=== PATIENT | male | born 1985 | race American Indian/Alaskan Native ===

== ENCOUNTER 2021-08-09 20:16 | Emergency (ER) | payer SELFPAY ==
[2021-08-09 20:55] VITALS: BP 149/90
[2021-08-09] MEDS ORDERED: ACETAMINOPHEN 325 MG TAB PO ONE (22:32)
[2021-08-09] MEDS ORDERED: IBUPROFEN 400 MG TAB PO ONE (22:32)
--- NOTE | 2021-08-09 22:33 | Emergency Department Report ---
Upper Extremity - HPI Chief Complaint: Chest Pain Stated Complaint: CHEST AND LT SHOULDER PAIN Time Seen by Provider: 08/09/21 21:54 Upper Extremity: Left Shoulder Occurred When: Today Mechanism: Unsure Symptoms: Yes Pain with Movement, No Deformity, No Limited Range of Movement, No Numbness, No Weakness, No Swelling, No Bruising/Ecchymosis, No Laceration or Abrasion Other History: The patient is a [id number] male who is 36 years old, with a body mass index of 56.4, who is not COVID-19 vaccinated, who presents to the ER today with a complaint of nontraumatic left-sided shoulder blade pain and scapular pain, moves to the left anterior chest wall. He denies travel, surgery, immobilization, DVT/PE risk factors. Denies vomiting, diaphoresis, exertional shortness of breath, leg pain, leg swelling, personal/family history of DVT/PE. He also reports that he is not consuming tobacco smoke products. He denies additional injuries and complaints. He has not taken pain medication at home for this. ED Review of Systems ROS: Stated complaint: CHEST AND LT SHOULDER PAIN Other details as noted in HPI Constitutional: denies: fever ENT: denies: congestion Respiratory: denies: cough, shortness of breath Cardiovascular: as per HPI Gastrointestinal: denies: abdominal pain Musculoskeletal: arthralgia, myalgia Neurological: denies: weakness ED Past Medical Hx - Past Medical History Previous Medical History?: No - Surgical History Past Surgical History?: No - Social History Smoking Status: Light Tobacco Smoker Substance Use Type: None - Medications Home Medications: Home Medications Medication Instructions Recorded Confirmed Last Taken Type Amoxicillin/K Clav Tab [Augmentin 1 tab PO Q12HR #20 tab 04/15/15 Unknown Rx 875 mg] Fluticasone [Flonase] 1 spray NS QDAY #1 bottle 04/15/15 Unknown Rx Acetaminophen [Non-Aspirin Extra 500 mg PO Q6HR PRN #30 tablet 08/09/21 Unknown Rx Strength] Ibuprofen [Motrin] 600 mg PO Q8H PRN #30 tablet 08/09/21 Unknown Rx Upper Extremity Exam - Exam General: Vital signs noted. No distress. Alert and acting appropriately. There is left anterior reproducible chest wall tenderness. There is minimal pain with active and passive range of motion of the left shoulder, internal rotation and external rotation. There is no redness, pus or streaking of the left shoulder. There is also reproducible left-sided inferior scapular tenderness. There is no redness, pus or streaking Head and Torso: No HEENT Abnormality, No Neck Tenderness, No Chest/Lungs Abnormality, No Abdominal Tenderness, No Back Tenderness Shoulder Exam: Yes Normal Range of Motion in Shoulder, No Shoulder Tenderness, No Clavicle Tenderness, No Shoulder Deformity, No AC Joint Tenderness Arm Exam: No Arm/Humerus Tenderness, No Arm Deformity Elbow: Yes Normal Range of Motion in Elbow, No Elbow Tenderness, No Elbow Deformity Forearm: No Forearm Tenderness, No Forearm Deformity, No Pain with Pronation, No Pain with Supination Wrist: Yes Normal ROM in Wrist, No Wrist Tenderness, No Wrist Deformity, No Snuffbox Tenderness, No Pain with Axial Thumb Compression Hand: Yes Normal ROM in Digit(s), No Hand Tenderness, No Hand Deformity, No Digit Tenderness, No Digit(s) Deformity, No Tendon Dysfunction CMS Exam: No Broken Skin, No Normal Distal Pulses, No Normal Capillary Refill, No Normal Distal Sensation ED Course Vital Signs 08/09/21 20:52 Temperature 98.7 F Pulse Rate 89 Respiratory 16 Rate Blood Pressure 149/90 [Right] O2 Sat by Pulse 99 Oximetry ED Medical Decision Making - Lab Data Vital Signs 08/09/21 08/09/21 08/09/21 20:52 23:08 23:09 Temperature 98.7 F Pulse Rate 89 Respiratory 16 16 16 Rate Blood Pressure 149/90 [Right] O2 Sat by Pulse 99 Oximetry - EKG Data -: EKG Interpreted by Sc EKG shows normal: sinus rhythm Rate: normal - EKG Data 08/09/21 23:50 The EKG is interpreted at 21: 04 Sinus rhythm, rate 90 bpm. Normal axis, normal P wave axis, high left ventricular voltage, Q waves noted in the inferior leads. This is an abnormal EKG. This is not a STEMI. This appears to be unchanged from prior EKG from January 26, 2014 - Radiology Data Radiology results: pending, report reviewed, image reviewed . CHEST PA AND LATERAL VIEWS INDICATION: Left shoulder and chest pain. COMPARISON: 04/15/2015 FINDINGS: Support devices: None. Heart: Within normal limits. Lungs/Pleura: No acute pulmonary or pleural findings. IMPRESSION: 1. No acute findings. Signer Name: Nilson Bolden MD Signed: 08/09/2021 10:02 PM Workstation Name: [id number] - Medical Decision Making Differential diagnosis, including not limited to: Sprain, strain, costochondritis, musculoskeletal pain Assessment and plan: 36-year-old gentleman, who is not currently tachycardic, tachypneic or hypoxic, who denies DVT and pulmonary embolism risk factors, who is low risk by Wells criteria for pulmonary embolism, and is PERC negative, who is right-hand dominant, does heavy lifting for work, presenting with left shoulder, left trapezius, and left anterior chest wall pain which is reproducible, and increases with external and internal rotation of the left shoulder. EKG unchanged from prior. X-ray unremarkable. Lacey improved after supportive and symptomatic therapy. Rest, ice, compression, elevation, alternate Tylenol Motrin for pain, follow-up with outpatient primary care, return precautions reviewed. Discussed this with the patient. He is agreeable to this plan of care. Critical care attestation.: If time is entered above; I have spent that time in minutes in the direct care of this critically ill patient, excluding procedure time. ED Disposition Clinical Impression: Pain of left scapula, Chest wall pain Disposition: HOME / SELF CARE / HOMELESS Is pt being admited?: No Does the pt Need Aspirin: No Condition: Good Instructions: Costochondritis, RICE Therapy for Routine Care of Injuries Additional Instructions: Please alternate ice packs and heat packs as needed for physical pain. Please take the prescribed pain medications as needed and directed. Rest, avoid heavy lifting, and avoid strenuous physical activities. Please follow-up with your primary care doctor within the next week for repeat checkup and evaluation. Recommend that patient complete COVID-19 vaccination series as an outpatient. Please return to the emergency room right away with new pain, worsened pain, migration of pain, projectile vomiting, change in mental status, confusion, inability tolerate liquid feeds, new, worsened or different symptoms not present on the initial emergency room evaluation Referrals: [facility] [Provider Group] - 3-5 Days Forms: Work/School Release Form(ED)
--- NOTE | 2021-08-09 23:07 | XRay Report ---
. CHEST PA AND LATERAL VIEWS INDICATION: Left shoulder and chest pain. COMPARISON: 04/15/2015 FINDINGS: Support devices: None. Heart: Within normal limits. Lungs/Pleura: No acute pulmonary or pleural findings. IMPRESSION: 1. No acute findings. Signer Name: Nilson Bolden MD Signed: 08/09/2021 11:02 PM Workstation Name: [id number]
--- NOTE | 2021-08-10 13:27 | Electrocardiograph Report ---
[facility] Test Date: 2021-08-09 Test Time: 21:04:52 Pat Name: CHARLES CALDWELL Department: Room: Gender: M Director Supply: TYRELL : 1985 Requested By: CRISTI ROSALES Order Number: [id number] Reading MD: Yahaira Engel Measurements Intervals [place] Rate: 90 P: 1 VT: 141 QRS: 30 QRSD: 98 T: -8 QT: 350 QTc: 430 Interpretive Statements Sinus rhythm Normal ECG No previous ECG available for comparison Electronically Signed On 08-10-2021 13:26:58 EST by Yahaira Engel
== END 2021-08-10 00:15 | disposition home or self-care (01) ==
LOC: ED 20:16
DX: M25.512 Pain in left shoulder (principal); R07.9 Chest pain, unspecified
CPT/HCPCS: 71046; 93005; 93010; 99283